=== PATIENT | male | born 1960 | race American Indian/Alaskan Native ===

== ENCOUNTER 2016-09-11 00:21 | Inpatient (IN) | payer OTHER ==
[2016-09-11 01:13] LABS: BUN/Creatinine Ratio 22.22; Blood Urea Nitrogen 20 mg/dL (9-20); Calcium 9.1 mg/dL (8.4-10.2); Carbon Dioxide 24 mmol/L (22-30); Chloride 99.3 mmol/L (98-107); Glucose 89 mg/dL (75-100); Sodium 139 mmol/L (137-145)
[2016-09-11 01:38] LABS: Basophils % (Auto) 1.2 % (0.0-1.8); Eosinophils % (Auto) 1.5 % (0.0-4.3); Hematocrit 42.8 % (35.5-45.6); Hemoglobin 14.3 gm/dl (11.8-15.2); Mean Corpuscular HGB Conc 34 % (32-34); Mean Corpuscular Hemoglobin 32 pg (28-32); Mean Corpuscular Volume 97 fl (84-94); Platelet Count 284 K/mm3 (140-440); Red Blood Count 4.42 M/mm3 (3.65-5.03); Red Cell Distribution Width 14.9 % (13.2-15.2); White Blood Count 3.6 K/mm3 (4.5-11.0)
[2016-09-11 01:44] LABS: Anion Gap 20 mmol/L
[2016-09-11] MEDS ORDERED: ZESTRIL PO ONE (05:45)
[2016-09-11] MEDS ORDERED: NORVASC PO ONE (05:45)
[2016-09-11] MEDS ORDERED: HCTZ PO ONE (05:46)
[2016-09-11] MEDS ORDERED: BABY ASPIRIN PO ONE (06:22)
--- NOTE | 2016-09-11 06:42 | Emergency Department Report ---
ED Chest Pain HPI - General Chief Complaint: Chest Pain Stated Complaint: DIFFICULTY BREATHING Time Seen by Provider: 09/11/16 06:04 Source: patient Mode of arrival: Ambulatory Limitations: No Limitations - History of Present Illness Initial Comments: This is a 55-year-old Afro-[place] male who presents to the emergency department with a complaint of midsternal chest pain and some shortness of breath since 8:30 AM Monday. At this point it is been close to 24 hours. The patient still complains of pain and says that it comes as a sharp pain and then dulls down and becomes more of a pressure sensation. It is nonradiating. He does have shortness of breath. Denies any cough or wheezing. He did not take anything for symptoms prior to presentation. He has a past medical history of hypertension for which she is on 3 antihypertensives. He is a tobacco user with cigars at about twice a week. His primary care doctor is a Dr. Zambrano. No recent travel or sick contacts at home. He denies any significant family history of early cardiac disease or . He has never had a stress test. Severity scale (0 -10): 7 - Related Data Home Medications Medication Instructions Recorded Confirmed Last Taken Hydrochlorothiazide [HCTZ] 25 mg PO QDAY 09/11/16 09/11/16 Unknown Lisinopril [Zestril] 40 mg PO DAILY 09/11/16 09/11/16 Unknown amLODIPine [Norvasc] 10 mg PO DAILY 09/11/16 09/11/16 Unknown Allergies Allergy/AdvReac Type Severity Reaction Status Date / Time No Known Allergies Allergy Verified 09/11/16 06:05 MYRTLE score - Myrtle Score Age > 65: (0) No Aspirin use within the Past 7 Days: (0) No 3 or more CAD Risk Factors: (1) Yes 2 or more Angina events in past 24 hrs: (1) Yes Known CAD with more than 50% Stenosis: (0) No Elevated Cardiac Markers: (0) No ST Deviation Greater than 0.5mm: (0) No MYRTLE Score: 2 ED Review of Systems ROS: Stated complaint: DIFFICULTY BREATHING Other details as noted in HPI Comment: All other systems reviewed and negative Constitutional: denies: chills, fever Eyes: denies: eye pain, eye discharge, vision change ENT: denies: ear pain, throat pain Respiratory: shortness of breath. denies: cough Cardiovascular: chest pain. denies: palpitations Gastrointestinal: denies: abdominal pain, nausea, diarrhea Genitourinary: denies: urgency, dysuria Musculoskeletal: denies: back pain, joint swelling, arthralgia Skin: denies: rash, lesions Neurological: denies: headache, weakness, paresthesias ED Past Medical Hx - Past Medical History Previous Medical History?: Yes Hx Hypertension: Yes - Surgical History Past Surgical History?: Yes Additional Surgical History: achellis left surgery - Social History Smoking Status: Unknown if ever smoked - Medications Home Medications: Home Medications Medication Instructions Recorded Confirmed Last Taken Type Hydrochlorothiazide [HCTZ] 25 mg PO QDAY 09/11/16 09/11/16 Unknown History Lisinopril [Zestril] 40 mg PO DAILY 09/11/16 09/11/16 Unknown History amLODIPine [Norvasc] 10 mg PO DAILY 09/11/16 09/11/16 Unknown History ED Physical Exam - General Limitations: No Limitations - Other Other exam information: GENERAL: The patient is well-developed well-nourished. HEENT: Normocephalic. Atraumatic. Extraocular motions are intact. Patient has moist mucous membranes. Pupils equal reactive to light bilaterally. NECK: Supple. Trachea is midline. CHEST/LUNGS: Clear to auscultation. There is no respiratory distress noted. Chest pain is not reproducible to palpation of chest wall. HEART/CARDIOVASCULAR: Regular. There is no tachycardia. There is no gallop rub or murmur. ABDOMEN: Abdomen is soft, nontender. Patient has normal bowel sounds. There is no abdominal distention. SKIN: There is no rash. There is no edema. There is no diaphoresis. NEURO: The patient is awake, alert, and oriented. The patient is cooperative. The patient has no focal neurologic deficits. The patient has normal speech. Cranial nerves II through XII grossly intact. MUSCULOSKELETAL: There is no tenderness or deformity. There is no limitation range of motion. There is no evidence of acute injury. ED Course Vital Signs 09/11/16 09/11/16 09/11/16 00:32 05:26 05:51 Temperature 98 F 98.4 F Pulse Rate 79 61 65 Respiratory 18 20 Rate Blood Pressure 197/139 192/134 Blood Pressure 197/139 192/134 [Left] O2 Sat by Pulse 100 98 Oximetry 09/11/16 09/11/16 09/11/16 05:52 06:11 07:19 Temperature Pulse Rate 65 81 Respiratory 20 16 Rate Blood Pressure 192/135 Blood Pressure [Left] O2 Sat by Pulse 98 97 Oximetry 09/11/16 09/11/16 09/11/16 07:20 07:30 07:31 Temperature Pulse Rate 65 63 66 Respiratory 18 11 L 17 Rate Blood Pressure 180/121 180/121 Blood Pressure [Left] O2 Sat by Pulse 96 100 99 Oximetry 09/11/16 09/11/16 09/11/16 07:37 07:39 07:41 Temperature Pulse Rate 68 68 66 Respiratory 14 13 14 Rate Blood Pressure 180/121 180/121 180/121 Blood Pressure [Left] O2 Sat by Pulse 98 97 97 Oximetry 09/11/16 09/11/16 09/11/16 07:43 07:44 07:45 Temperature Pulse Rate 66 70 68 Respiratory 12 10 L 11 L Rate Blood Pressure 180/121 180/121 180/121 Blood Pressure [Left] O2 Sat by Pulse 97 97 97 Oximetry 09/11/16 09/11/16 09/11/16 07:47 07:49 07:51 Temperature Pulse Rate 66 69 67 Respiratory 13 14 11 L Rate Blood Pressure 180/121 180/121 180/121 Blood Pressure [Left] O2 Sat by Pulse 97 97 97 Oximetry 09/11/16 09/11/16 09/11/16 07:53 07:55 07:57 Temperature Pulse Rate 67 77 67 Respiratory 11 L 15 12 Rate Blood Pressure 180/121 180/121 180/121 Blood Pressure [Left] O2 Sat by Pulse 98 99 99 Oximetry 09/11/16 09/11/16 09/11/16 07:59 08:01 08:02 Temperature Pulse Rate 67 66 66 Respiratory 15 15 14 Rate Blood Pressure 180/121 180/121 168/112 Blood Pressure [Left] O2 Sat by Pulse 98 98 100 Oximetry 09/11/16 08:03 Temperature Pulse Rate 65 Respiratory 13 Rate Blood Pressure 180/121 Blood Pressure [Left] O2 Sat by Pulse 99 Oximetry ED Medical Decision Making - Lab Data Result diagrams: 09/11/16 00:40 09/11/16 00:40 - EKG Data -: EKG Interpreted by [facility] EKG shows normal: sinus rhythm, axis (LAD), intervals, QRS complexes (LVH), ST- T waves (T-wave inversions to the inferior and lateral leads) Rate: normal - EKG Data When compared to previous EKG there are: previous EKG unavailable Interpretation: other (sinus rhythm, left axis deviation, LVH, T-wave inversions inferior and lateral leads) - Radiology Data Radiology results: report reviewed, image reviewed interpreted by me: Chest x-ray did not show any acute process. Heart is normal shape and size. No effusions. No pneumothorax. No signs of pneumonia seen. CT angiography of the chest does not show any signs of pulmonary embolism, dissection or aneurysm but there is suspicion for basilar infiltrates. - Medical Decision Making 55-year-old male presents with midsternal chest pain and some shortness of breath going on for the past 24 hours. Patient has had negative troponins 3 but still continues to have chest pain. He also has no history of any previous stress test. He has the risk factors of hypertension which continues to be an issue for him despite pain medication and his morning blood pressure medications. He also has a risk factor of tobacco abuse. CT angiography did not show any signs of pulmonary embolism or dissection but there was the reading of suspicion for basilar infiltrates. For this reason blood cultures were obtained and the patient was started on a dose of Rocephin and azithromycin. Patient has been accepted for admission by the hospitalist, Dr. Wren. - Differential Diagnosis NC, PE, pneumonia, CHF, costochondritis, GERD Critical Care Time: No Critical care attestation.: If time is entered above; I have spent that time in minutes in the direct care of this critically ill patient, excluding procedure time. ED Disposition Clinical Impression: Hypertensive urgency Chest pain Qualifiers: Chest pain type: unspecified Qualified Code(s): R07.9 - Chest pain, unspecified Pneumonia Qualifiers: Pneumonia type: due to unspecified organism Laterality: unspecified laterality Lung location: unspecified part of lung Qualified Code(s): J18.9 - Pneumonia, unspecified organism Disposition: OP ADMITTED IP TO THIS HOSP Is pt being admited?: Yes Condition: Stable Instructions: Chest Pain (ED), Bacterial Pneumonia (ED) Referrals: PRIMARY CARE, [Primary Care Provider] - 3-5 Days Time of Disposition: 09:11
[2016-09-11] MEDS ORDERED: MORPHINE IV ONE (07:27)
[2016-09-11] MEDS ORDERED: NACL ONE (07:59)
--- NOTE | 2016-09-11 09:05 | Cat Scan Report ---
CTA chest: History: Chest pain, elevated d-dimer. Findings: Aortic diameter 4 cm suggestive aneurysm. No evidence of dissection. No evidence of pulmonary embolism. Evidence of pulmonary arterial hypertension. No pleural or pericardial effusion. No mediastinal mass or adenopathy. Suspicion of right basilar faint infiltrates. Impression: Suspicion of right basilar infiltrates. Evidence of aortic aneurysm. No evidence of pulmonary embolism.
[2016-09-11] MEDS ORDERED: ROCEPHIN/NS 1 GM/50 ML 1 GM/50 ML BAG IV ONE (09:06)
[2016-09-11] MEDS ORDERED: ZITHROMAX 500 MG in NACL 0.9% 250ML 250 ML IV ONE (09:06)
--- NOTE | 2016-09-11 09:20 | XRay Report ---
Chest 2 views: History: Chest pain. Findings: Normal cardiomediastinal silhouette the trachea is midline. No consolidation, pneumothorax or pleural effusion Impression: No acute cardiopulmonary findings.
[2016-09-11] MEDS ORDERED: SODIUM CHLORIDE FLUSH SYRINGE 10 ML IV PRN (09:47)
[2016-09-11] MEDS ORDERED: ZESTRIL ONE (10:34)
[2016-09-11] MEDS: HCTZ PO SCH (10:41)
[2016-09-11] MEDS: NORVASC PO SCH (10:41)
[2016-09-11] MEDS: ZESTRIL PO SCH (10:42)
[2016-09-11 10:46] LABS: Creatine Kinase MB 1.8 ng/mL (0.0-4.0); INR 0.9 (0.87-1.13)
[2016-09-11 10:48] LABS: Creatine Kinase 80 units/L (55-170)
[2016-09-11 10:58] LABS: Alanine Aminotransferase 11 units/L (7-56); Albumin/Globulin Ratio 1.1 %; Alkaline Phosphatase 87 units/L (35-129); Anion Gap 20 mmol/L; BUN/Creatinine Ratio 18.75; Bilirubin,Total 0.5 mg/dL (0.1-1.2); Blood Urea Nitrogen 15 mg/dL (9-20); Calcium 9.3 mg/dL (8.4-10.2); Carbon Dioxide 23 mmol/L (22-30); Chloride 98.3 mmol/L (98-107); Glucose 143 mg/dL (75-100); Potassium 3.9 mmol/L (3.6-5.0); Sodium 137 mmol/L (137-145); Total Protein 7.5 g/dL (6.3-8.2)
[2016-09-11] MEDS: NITRO-BID 2% TP SCH (15:30)
--- NOTE | 2016-09-11 15:50 | History and Physical Report ---
History of Present Illness Date of examination: 09/11/16 Date of admission: 09/11/16 09:50 Chief complaint: Chest pain one day duration History of present illness: Patient is a 55-year-old gentleman was a history of hypertension, presented emergency department with a history of chest pain that started about 2 AM. Pain is retrosternal, 9/10 in severity, associated with shortness of breath. No diaphoresis. Patient endorses two-pillow orthopnea and paroxysmal nocturnal dyspnea Chest pain is Off and on since onset, lasting for 10-15 minutes. Denies any radiation. At emergency department patient was noted to have elevated d-dimer. CT scan of the chest was done. There was no PE. However had dilated aorta, suggestive of any aortic aneurysm measuring 4 cm. Blood pressure was found to be very elevated at 180/121. Admission was therefore requested Past History Past Medical History: hypertension Past Surgical History: Other (repair of left Achilles tendon) Social history: lives with family, smoking, alcohol abuse. denies: prescription drug abuse, IV drug use Family history: hypertension Medications and Allergies Allergies Allergy/AdvReac Type Severity Reaction Status Date / Time No Known Allergies Allergy Verified 09/11/16 06:05 Home Medications Medication Instructions Recorded Confirmed Last Taken Type Hydrochlorothiazide [HCTZ] 25 mg PO QDAY 09/11/16 09/11/16 Unknown History Lisinopril [Zestril] 40 mg PO DAILY 09/11/16 09/11/16 Unknown History amLODIPine [Norvasc] 10 mg PO DAILY 09/11/16 09/11/16 Unknown History Active Meds: Active Medications Amlodipine Besylate (Norvasc) 10 mg PO DAILY [facility] Last Admin: 09/11/16 10:41 Dose: Not Given Aspirin (Ecotrin) 325 mg PO QDAY [facility] Enoxaparin Sodium (Lovenox) 40 mg SUB-Q QDAY@2200 [facility] Hydrochlorothiazide (Hctz) 25 mg PO QDAY [facility] Last Admin: 09/11/16 10:41 Dose: Not Given Lisinopril (Zestril) 40 mg PO DAILY [facility] Last Admin: 09/11/16 10:42 Dose: Not Given Nitroglycerin (Nitro-Bid 2%) 0.5 inch TP BIDNTG [facility] PRN Reason: Protocol Last Admin: 09/11/16 15:30 Dose: 0.5 inch Sodium Chloride (Sodium Chloride Flush Syringe 10 Ml) 10 ml IV PRN PRN PRN Reason: LINE FLUSH Review of system Constitutional: Well Nouridhed and Well developed. Head: NC/ AT Eyes: Denies any visual impairments. No discharge from the eyes Nose: Denies any rhinorrhea or epistaxis Throats: Denies any post nasal drainage. Ears: Denies any hearing deficits Cardiovascular system: Complains of chest pain, shortness of breath, orthopnea, paroxysmal nocturnal dyspnea. Respiratory system: Denies any cough, difficulty breathing, wheezing, pleuritic chest pain, Gastrointestinal system: Denies any abdominal pain, nausea vomiting, hematemesis or melena. Neurological system: Denies any headache, slurred speech, facial droop, lateralizing weakness Genitalia system: Denies any dysuria, urinary frequency or urgency, urethral discharge Skin: No rashes, hyperpigmented spots. Hematological: Denies any cervical tenderness hemorrhages or petechia. Immunological: Denies any multiple septic spots, Lymphatic: Denies any generalized lymphadenopathy. Endocrine: Denies any polyuria, polydipsia, polyphagia. No heat or cold intolerance. Exam - Constitutional Vitals: Temp Pulse Resp BP Pulse Ox 98.4 F 65 11 L 137/98 93 09/11/16 05:26 09/11/16 15:30 09/11/16 15:00 09/11/16 15:30 09/11/16 15:00 General appearance: Present: no acute distress, well-nourished - EENT Eyes: Present: PERRL ENT: hearing intact, clear oral mucosa - Neck Neck: Present: supple, normal ROM - Respiratory Respiratory effort: normal Respiratory: bilateral: CTA - Cardiovascular Heart Sounds: Present: S1 & S2. Absent: rub, click - Extremities Extremities: pulses symmetrical, No edema Peripheral Pulses: within normal limits - Abdominal General gastrointestinal: Present: soft, non-tender, non-distended, normal bowel sounds - Integumentary Integumentary: Present: clear, warm, dry - Musculoskeletal Musculoskeletal: gait normal, strength equal bilaterally - Psychiatric Psychiatric: appropriate mood/affect, intact judgment & insight - Neurologic Neurologic: CNII-XII intact, moves all extremities Results - Labs CBC & Chem 7: 09/11/16 00:40 09/11/16 10:13 Labs: Abnormal lab results 09/11/16 09/11/16 09/11/16 Range/Units 10:13 10:13 10:13 PT 12.0 L (12.2-14.9) Sec. Glucose 143 H (75-100) mg/dL Cholesterol 212 H (50-199) mg/dL HDL Cholesterol 118 H (40-59) mg/dL - Imaging and Cardiology Chest x-ray: report reviewed Abdominal x-ray: report reviewed CT scan - abdomen: report reviewed CT scan - chest: report reviewed CT Scan - head: report reviewed CT scan - pelvis: report reviewed Assessment and Plan 1. Chest pain, atypical: Commenced. Oxygen nitroglycerin aspirin and morphine. Serial cardiac enzymes. If second set is normal, Lexapro stress test will be done 2. Malignant hypertension: Commence patient on the lisinopril, carvedilol, amlodipine. 3: Active aneurysm measuring 4 cm in diameter. We'll obtain a vascular surgical consult. 5. Tobacco use disorder: Counseling on tobacco cessation was done after 3 minutes. 6. DVT prophylaxis with Lovenox and GI prophylaxis with omeprazole. Spends 31 minutes in direct patient care evaluation of medical record and radiological data as well as his pressure management plan to the patient.
[2016-09-11 15:58] LABS: Creatine Kinase MB 1.5 ng/mL (0.0-4.0)
[2016-09-11 15:59] LABS: Creatine Kinase 67 units/L (55-170)
[2016-09-11] MEDS ORDERED: PNEUMOVAX 23 IM ONE (16:03)
[2016-09-11] MEDS ORDERED: NORMODYNE IV PRN (19:56)
[2016-09-11 20:51] LABS: Creatine Kinase MB 1.5 ng/mL (0.0-4.0)
[2016-09-11] MEDS ORDERED: LOVENOX SUB-Q SCH (22:00)
[2016-09-12 01:13] LABS: Creatine Kinase MB 1.3 ng/mL (0.0-4.0)
[2016-09-12] MEDS: NITRO-BID 2% TP SCH (05:48)
[2016-09-12 06:31] LABS: Creatine Kinase MB 1.2 ng/mL (0.0-4.0)
[2016-09-12] MEDS ORDERED: LEXISCAN IV ONE ×2 (08:19→08:23)
[2016-09-12] MEDS ORDERED: ECOTRIN PO SCH (10:00)
[2016-09-12] MEDS: NORVASC PO SCH (10:08)
[2016-09-12] MEDS: HCTZ PO SCH (10:08)
[2016-09-12] MEDS: ZESTRIL PO SCH (10:08)
--- NOTE | 2016-09-12 10:16 | Admit Criteria Form ---
Admission Criteria Documentation: CHEST PAIN Clinical Indications for Admission to Inpatient Care (Place 'X' for any and all applicable criteria): Admission is indicated for chest pain and ANY ONE of the following(1)(2)(3)(4)(5 ): [ ]I. Angina with acute coronary syndrome (Also use Myocardial Infarction or Angina guideline) [ ]II. Hemodynamic instability [X]III. Angina needing acute intervention as indicated by ALL of the following( 11)(12): [X]a) Unstable angina is present as indicated by angina that is ANY ONE of the following: [ ]i) New onset [ ]ii) Nocturnal [X]iii) Prolonged at rest [ ]iv) Progressive [X]b) Angina warrants acute intervention as indicated by ANY ONE of the following: [ ]i) Recurrent angina (e.g, not responding as previously to treatment) [ ]ii) Angina at rest or with low-level activities despite initial medical therapy [ ]iii) New or presumably new ST-segment depression on ECG [ ]iv) Signs or symptoms of heart failure (eg, dyspnea, pulmonary edema) [ ]v) New or worsening mitral regurgitation [ ]vi) Hemodynamic instability [ ]vii) Dangerous arrhythmia (eg, sustained ventricular tachycardia) [ ]viii) History of percutaneous coronary intervention within 6 months [ ]ix) History of coronary artery bypass graft surgery [X]x) MYRTLE risk score of 2 or greater[A] [ ]xi) History of Diabetes(14) [ ]xii) High-risk cardiac ischemia findings on noninvasive testing (e.g, echocardiogram, treadmill testing, nuclear scan) [ ]xiii) Chronic renal insufficiency (ie, estimated GFR less than 60 mL/min/1.732m) [ ]xiv) Left ventricular ejection fraction less than 40% [ ]IV. Evidence of TN (eg, cardiac biomarkers positive, ST-segment elevation on ECG) also use Myocardial Infarction Criteria Form. [ ]V. Pulmonary edema [ ]. Respiratory distress [ ]VII. Chest pain indicative of serious diagnosis other than coronary artery disease (eg, aortic dissection) [ ]VIII. Contraindications and/or Inappropriate clinical situations for Observational Care in patients with Chest Pain, when ANY ONE of the following is required: [ ]a) Patient with risk factor for pulmonary embolism, acute coronary syndrome and myocardial infarction (18) [ ]b) Patient with Pulmonary embolism require an average LOS of 4.3 days, therefore emergency department observation management is inappropriate 18,23 [ ]c) Painful condition/s in the elderly, have the highest rate of recidivism after emergency department observation management (10.8%) 20,21,22 [ ]d) Elevated cardiac biomarker requires intensive and exhaustive care (19) [ ]IX. General contraindications and/or Inappropriate clinical situations for Observational Care in patients with Chest Pain, when ANY ONE of the following is required: [ ]a) Prediction of prolongation of LOS based on ANY ONE of the following may be considered as a contraindication for observational care 2, 3, 4, 5, 6, 7, 8, 9, 10, 11 [ ]i) Age > 65 yrs. [ ]ii) Patient arriving by ambulance [ ]iii) Patient with high acuity [ ]iv) Patient requiring vital sign monitoring [ ]v) Patient on IV medication [ ]b) Systolic blood pressures 180mmHg 3,12 [ ]c) Patient with altered mental status including delirium and other alteration of consciousness, (3) [ ]d) Patient whose discharge disposition will be to a fdc home or rehabilitation home should not be managed in Emergency Department Observation Unit. CMS rule requires 3 days hospital stay before such placement. 3,13 [ ]e) Patient with failure to thrive due to broad array of etiologies 3,16,17 [ ]f) Inability to ambulate 3,14 Extended stay beyond goal length of stay may be needed for (1)(28): [ ]a) Specific condition diagnosed after evaluation (eg, pulmonary embolism, aortic dissection) [ ]b) Unstable angina [ ]c) Continued suspicion of acute coronary syndrome with inability to complete needed cardiac evaluation (eg, patient clinically unable to undergo stress testing) [ ]d) Myocardial infarction (Contents from ANGINA and CHEST PAIN clinical indications for admission to inpatient care have been integrated in this form) The original [employer] content created by [employer] has been revised. The portions of the content which have been revised are identified through the use of italic text or in bold, and [employer] [facility] [employer] has neither reviewed nor approved the modified material. All other unmodified content is copyright [employer]. Please see references footnoted in the original [employer] [facility] [facility] [employer] edition 2016 Admission Criteria Met: Yes
[2016-09-12 10:59] LABS: INR 0.91 (0.87-1.13)
[2016-09-12 11:17] LABS: Alanine Aminotransferase 11 units/L (7-56); Albumin 3.6 g/dL (3.9-5); Albumin/Globulin Ratio 1.1 %; Alkaline Phosphatase 77 units/L (35-129); Anion Gap 16 mmol/L; Bilirubin,Total 0.6 mg/dL (0.1-1.2); Blood Urea Nitrogen 16 mg/dL (9-20); Carbon Dioxide 27 mmol/L (22-30); Glucose 114 mg/dL (75-100); Potassium 3.9 mmol/L (3.6-5.0); Sodium 135 mmol/L (137-145); Total Protein 6.9 g/dL (6.3-8.2)
--- NOTE | 2016-09-12 11:55 | Treadmill Report ---
NUCLEAR PERFUSION SCAN REFERRING PHYSICIAN: Jimy Wren MD PROTOCOL: The patient was brought to the stress lab in a postabsorptive state, was given 10 mCi of technetium 99m at rest. The patient underwent rest imaging. The patient underwent Lexiscan stress test per standard protocol. At peak stress, the patient was given 26 mCi of technetium 99m. Shortly thereafter, the patient underwent stress imaging. Raw imaging reveals mild GI artifact, no significant motion artifact. SPECT imaging examined carefully in the horizontal long axis, vertical long axis, and short axis views. There is normal homogenous uptake of radioisotope in all reported segments. No evidence of significant fixed or reversible perfusion defects suggestive of prior infarction or ischemia. Gated wall motion reveals low normal systolic performance with a calculated ejection fraction of 46%. No TID. CONCLUSIONS: 1. Normal myocardial perfusion scan without evidence of active ischemia or prior infarction. 2. Low normal left ventricular systolic performance with a calculated ejection fraction of 46%. No TID or segmental wall motion abnormalities. 3. Lexiscan stress test reported separately. JOB# [id number] PABLITO/JOEY
--- NOTE | 2016-09-12 12:17 | Discharge Summary ---
Providers - Providers Date of Admission: 09/11/16 09:50 Attending physician: DENNY SANTIAGO 09/11/16 17:51 Consult to Physician [CONS] Routine Consulting Provider: NAOMY BRADFORD Reason For Exam: aortic aneurysm - [address] consult to:: José Notified:: PLEASE CALL MD IN AM Was contact made?: No Comment:: called Dr. Maldonado agronomy internship MD. Awaiting response Primary care physician: SUPERVISOR FABRICATION Hospitalization Condition: Stable Disposition: STILL A PATIENT Exam - Constitutional Vitals: Temp Pulse Resp BP Pulse Ox 98.3 F 64 18 184/117 100 09/12/16 09:09 09/12/16 09:09 09/12/16 09:09 09/12/16 09:09 09/12/16 09:52 Plan Follow up with: PRIMARY MD TICO [Primary Care Provider] - 3-5 Days Prescriptions: Pantoprazole [Protonix TAB] 20 mg PO QDAY #30 tablet.
[2016-09-12 12:43] VITALS: BP 132/86
--- NOTE | 2016-09-12 15:42 | Event Note ---
Date: 09/12/16 Asked to evaluate patient due to radiologic finding of a 4 cm ascending aortic aneurysm on CT. Patient states that he was admitted with chest pains and shortness of breath which have improved. His CT scan was evaluated. The report suggests his ascending aorta is approximately 4 cm. No evidence of dissection. This represents a small aneurysm of the ascending aorta. This appears to be below the surgical threshold at this point. We do not manage this type of aneurysm. This appears to be an incidental finding on a study to rule out pulmonary embolus. We recommend that this patient follow-up with cardiothoracic surgery upon discharge. He stated understanding and agreed.
== END 2016-09-12 17:36 | disposition home or self-care (01) | DRG 313 ==
LOC: ED 00:21 → 4A 09:50
PROVIDERS: ADMIT Family Medicine; ATTEND Internal Medicine
PROC: 4A02XM4 Measurement of Cardiac Total Activity, External Approach (ICD-10-PCS; principal; 2016-09-11)
DX: R07.89 Other chest pain (principal); I10 Essential (primary) hypertension; I72.9 Aneurysm of unspecified site; F10.10 Alcohol abuse, uncomplicated; F17.200 Nicotine dependence, unspecified, uncomplicated; Z82.49 Family history of ischemic heart disease and other diseases of the circulatory system
CPT/HCPCS: 36415; 71020; 71275; 78452; 80048; 80053; 80061; 82550; 82553; 83036; 84484; 85025; 85379; 85610; 87040; 90732; 93005; 93010; 93017; 96365; 96367; 96375; A9270-GY; A9502; J0456; J0696; J1650; J2270; J2785; J7050; Q9967